=== PATIENT | male | born 1965 | race Caucasian/White ===

== ENCOUNTER 2016-05-26 19:48 | Emergency (ER) | payer BC ==
[~2016-05-26] VITALS: Ht 180.3 cm; Wt 97.7 kg
[2016-05-26 19:50] VITALS: BP 148/104; TEMP 98
[2016-05-26] MEDS ORDERED: LIPITOR 10MG10 MG PO (19:52)
[2016-05-26] MEDS ORDERED: ASPIRIN 81M81 MG/TA2 PO (19:53)
[2016-05-26] MEDS ORDERED: NIASPAN 500MG500 MG PO (19:53)
[2016-05-26] MEDS ORDERED: NEXIUM 40MG40 MG PO (19:53)
[2016-05-26 20:57] VITALS: PULSE 94
== END 2016-05-26 20:57 | disposition home or self-care (01) ==
LOC: COL.ER 19:48
DX: R23.2 Flushing (principal); T46.7X5A Adverse effect of peripheral vasodilators, initial encounter

== ENCOUNTER 2018-03-12 11:03 | Outpatient (RCR) | payer OTHER ==
[~2018-03-12 11:03] MED LIST: ASPIRIN 81M81 MG/TA2 PO; LIPITOR 10MG10 MG PO; NEXIUM 40MG40 MG PO; NIASPAN 500MG500 MG PO
== END 2018-05-27 | disposition home or self-care (01) ==
LOC: WSOH
DX: S61.240A Puncture wound with foreign body of right index finger without damage to nail, initial encounter (principal); X58.XXXA Exposure to other specified factors, initial encounter; Y93.H3 Activity, building and construction; Y92.214 College as the place of occurrence of the external cause; Y99.0 Civilian activity done for income or pay; Z87.891 Personal history of nicotine dependence; Z79.899 Other long term (current) drug therapy

== ENCOUNTER 2022-06-12 10:49 | Outpatient (RCR) | payer OTHER | END 2022-07-07 | disposition home or self-care (01) | LOC: WSOH | DX: M79.644 Pain in right finger(s) (principal); K21.9 Gastro-esophageal reflux disease without esophagitis; Y99.0 Civilian activity done for income or pay ==